=== PATIENT | female | born 1945 | race Caucasian/White ===

== ENCOUNTER → 2020-05-07 | Outpatient (CLI) | payer MEDICARE, OTHER ==
--- NOTE | 2020-05-12 16:36 | RAD ---
EXAM: Bilateral digital screening mammogram with tomosynthesis. HISTORY: 74-year-old female presents for screening mammography. TECHNIQUE: Full-field digital craniocaudal and mediolateral oblique 2D and 3D tomosynthesis images of both breasts are obtained for evaluation. Computer aided detection was applied. COMPARISON: 09/26/2016 BREAST PARENCHYMAL DENSITY: Level B - Scattered fibroglandular densities. FINDINGS: There is no new suspicious mass, microcalcification or region of architectural distortion. IMPRESSION: BI-RADS Category 2: Benign finding(s). RECOMMENDATION: Annual mammography is recommended. If your mammogram demonstrates that you have dense breast tissue, which could hide abnormalities, and if you have other risk factors for breast cancer that have been identified, you might benefit from s upplemental screening tests that may be suggested by your ordering physician. Dense breast tissue, i n and of itself, is a relatively common condition. This information is not provided to cause undue c oncern, but rather to raise your awareness and to promote discussion with your physician regarding th e presence of other risk factors, in addition to dense breast tissue. A report of your mammography re sults will be sent to you and your physician. You should contact your physician if you have any ques tions or concerns regarding this report. Mammography is a sensitive method for finding small breast cancers, but it does not detect them all a nd is not a substitute for careful clinical examination. A negative mammogram does not negate a clin ically suspicious finding and should not result in delay in biopsying a clinically suspicious abnorma lity. PQRS compliance statement - Patient information was entered into a reminder system with a target due date for the next mammogram. "Our facility is accredited by the [employer] Mammography [employer]." Electronically signed by: Sophy Franklin MD (05/12/2020 4:33 PM) [id number]
== END ==
LOC: MAMMO 10:53
PROVIDERS: ATTEND Family Medicine
DX: Z12.31 Encounter for screening mammogram for malignant neoplasm of breast (principal)
CPT/HCPCS: 77063; 77067

== ENCOUNTER 2020-09-22 07:48 | Emergency (ER) | payer MEDICARE, OTHER ==
[~2020-09-22] VITALS: Ht 162.6 cm; Wt 75.1 kg
[2020-09-22] MEDS ORDERED: IV NORMAL SALINE 1,000ML 1,000 ML IV SCH (08:15)
--- NOTE | 2020-09-22 08:26 | PHYS DOC ---
Past History Additional Past Medical Histor: seasonal allergies Past Surgical History: Cholecystectomy, Hysterectomy, Oophorectomy, Tonsillectomy, Other Additional Past Surgical Histo: colon surgery Alcohol Use: None General Adult EDM: Chief Complaint: FEVER HPI: HPI: 75-year-old female past medical history of COPD (no h/o hospitalizations for it), hypertension, hyperlipidemia, presents the ED with complaints of "weakness, I can't care for myself at home," stating she was recently exposed to covid by her son who stayed at her home. Was started on azithromycin and steroids this past week by [facility]. Has not been vaccinated for covid. Associated fever and shortness of breath. Review of Systems: Review of Systems: Constitutional: Denies lack of taste or smell Eyes: Denies change in visual acuity HENT: Denies nasal congestion or sore throat Respiratory: Denies cough or hemoptysis Cardiovascular: Denies chest pain or edema GI: Denies abdominal pain, nausea, vomiting, bloody stools or diarrhea : Denies dysuria or hematuria Musculoskeletal: Denies back pain or joint pain Integument: Denies rash or diaphoresis Neurologic: Denies headache, focal weakness or sensory changes Endocrine: Denies polyuria or polydipsia Lymphatic: Denies swollen glands Psychiatric: Denies depression or anxiety Allergies: Allergies: Allergies Coded Allergies Type Severity Reaction Last Updated Verified Penicillins Allergy Unknown 09/22/20 Yes levofloxacin Allergy Unknown Rash 09/22/20 Yes Physical Exam: PE: Constitutional: Well developed, well nourished, no acute distress, non-toxic appearance, afebrile HENT: Normocephalic, atraumatic, dry mucous membranes Eyes: EOMI, conjunctiva normal, no discharge. Neck: Normal range of motion, supple, Cardiovascular: S1/2 present, borderline tachycardia Lungs & Thorax: Speaking in full sentences, bilateral equal chest rise, no tachypnea or increased work of breathing, pursed lips - similar to copders, Abdomen: soft, no tenderness, Skin: Warm, dry, no erythema, no rash. [] Extremities: No tenderness, no cyanosis, Neurologic: Alert and oriented X 3, normal motor function, normal sensory function, no focal deficits noted. [] Psychologic: Affect normal, judgement normal, mood normal. [] Current Patient Data: Vital Signs: Vital Signs Date Time Temp Pulse Resp B/P (MAP) Pulse Ox O2 Delivery O2 Flow Rate FiO2 09/22/20 07:56 100.0 101 18 143/82 93 Room Air EKG: EKG: Sinus tachycardia 102 bpm, no axis deviation, QTC 461, no T wave inversion, no ST elevation or ST depression [] Radiology/Procedures: Radiology/Procedures: IMAGING REPORT Signed PATIENT: ANDERS DOBBINS ACCOUNT: [id number] : 1945 LOCATION: ER AGE: 75 SEX: F EXAM STATUS: REG ER ORD. PHYSICIAN: LOVELY HERR DO REASON: soa, r/o pe, reduced dose gfr 39 contrast administered per [facility] PROCEDURE: CT ANGIOGRAPHY CHEST PQRS Compliance Statement: One or more of the following individualized dose reduction techniques were utilized for this examination: 1. Automated exposure control 2. Adjustment of the mA and/or kV according to patient size 3. Use of iterative reconstruction technique CT CHEST WITH CONTRAST, PULMONARY ANGIOGRAM History: Reason: soa, Comparison: None. Technique: Helical CT of the chest was performed after the administration of 60 cc of Omnipaque 300 intravenous contrast according to PE protocol. Axial and coronal reconstructions were obtained. 3-D MIP images were constructed to better evaluate the pulmonary arteries. Findings: Pulmonary arteries are adequately opacified. There is no evidence of pulmonary embolism. Atherosclerotic thoracic aorta. No dissection is seen. The great vessels are normal caliber. Coronary artery disease. The cardiac size is normal, no pericardial effusion. There is a bvbvv-xg-fwuhmiah sized hiatal hernia. There are subcentimeter bilateral hilar lymph nodes. There is no adenopathy in the chest. There is no pleural abnormality. There is mild respiratory motion artifact. There is mild upper lung emphysema. There is a groundglass opacity in the right upper lobe measuring 1.2 cm. There is a groundglass and reticular opacity in the posterior right lower lobe measuring 2 cm. Lateral and superior there is another groundglass opacity measuring 1.6 cm. There is a groundglass and reticular opacity in the left upper lobe measuring 2.5 cm. The central airways are patent. There is moderate fatty infiltration of the visualized liver. Cholecystectomy. Thoracic spine alignment is maintained. IMPRESSION: 1. There is no pulmonary embolus. 2. There are a few groundglass and reticular opacities bilaterally that may be infectious or inflammatory or atelectasis or scarring. 3. Mild pulmonary emphysema. 4. Hiatal hernia. 5. Fatty infiltration of the liver. Electronically signed by: Nathaniel Aleman MD (09/22/2020 10:21 AM) [id number] DICTATED AND SIGNED BY: NATHANIEL ALEMAN MD DATE: 09/22/20 1011 Heart Score: C/O Chest Pain: No Risk Factors: Risk Factors: DM, Current or recent (<one month) smoker, HTN, HLP, family history of CAD, obesity. Risk Scores: Score 0 - 3: 2.5% MACE over next 6 weeks - Discharge Home Score 4 - 6: 20.3% MACE over next 6 weeks - Admit for Clinical Observation Score 7 - 10: 72.7% MACE over next 6 weeks - Early Invasive Strategies Course & Med Decision Making: Course & Med Decision Making Pertinent Labs and Imaging studies reviewed. (See chart for details) COVID-19 CRITERIA: The patient was evaluated during the global COVID-19 pandemic, and that diagnosis was suspected/considered upon their initial presentation. Their evaluation, treatment and testing was consistent with current guidelines for patients who present with complaints or symptoms that may be related to COVID-19. Concern for weakness and shortness of breath in the setting of known Covid exposure. CTA of the chest shows no pulmonary embolus, GGO c/w Covid infection. Patient with mild elevation of creatinine and liver functions.Patient with no active COPD exacerbation, not requiring any supplemental oxygen. Will recommend supportive measures. Patient already on antibiotics and steroids. Will prescribe albuterol rescue inhaler and Flovent for the next 30 days to prevent COPD exacerbation. Will discharge home with strict ED return precautions were given for difficulties breathing, hypoxia, strokelike symptoms, chest pain or syncope. Encouraged urgent outpatient follow-up with PMD and pulmonology for COPD management. Life-threatening processes were considered but are low suspicion at this time, given history, physical exam and ED workup. Pt was educated on all prescription medications and adverse effects. All patient's questions were answered and pt was stable at time of discharge. Life/limb-threatening differential includes but is not limited to, ACS, dysrhythmia, pneumothorax or hemothorax, pulmonary embolus, pneumonia, bronchoconstriction, pulmonary edema, angioedema, epiglottitis, tracheitis, Pito's angina, RPA/RADIOGRAPHER CARDIAC CATHETERIZATION, anaphylaxis, angioedema, cardiac tamponade or murmurs, pericarditis, myocarditis, poisoning or toxicity, sepsis or autoimmune/neurologic disease. I have spoken with the patient and/or caregivers. I explained the patient's condition, diagnoses and treatment plan based on the information available to me at this time. I have answered the patient and/or caregiver's questions and addressed any concerns. The patient and/or caregivers have a good understanding of patient's diagnosis, condition and treatment plan as can be expected at this point. Vital signs have been stable. Patient's condition is stable and appropriate for discharge from the emergency department. Patient will pursue further outpatient evaluation with primary care physician or other designated or consulting physician as outlined in the discharge instructions. The patient and/or caregivers are agreeable to this plan of care and follow-up instructions have been explained in detail. The patient and/or caregivers have received these instructions in written form and have expressed an understanding of the discharge instructions. The patient and/or caregivers are aware that any significant change of condition or worsening of symptoms should prompt immediate return to this or the closest emergency department or call to 911. Prashant Disclaimer: DragInfolinks Disclaimer: This electronic medical record was generated, in whole or in part, using a voice recognition dictation system. Departure Departure: Impression: Primary Impression: COVID-19 Additional Impression: COPD (chronic obstructive pulmonary disease) Disposition: HOME / SELF CARE / HOMELESS Condition: STABLE Referrals: MORIS MURPHY MD (PCP) Follow-up in the next few days for reevaluation Patient Instructions: Chronic Obstructive Pulmonary Disease Additional Instructions: Return to ED immediately if your oxygen level drops below 90% (purchase a pulse oximetry at a medical supply store), difficulties breathing including rapid breathing or increased work of breathing (skin sucking under ribs), chest pain or stroke-like symptoms (facial droop, speech changes, arm/leg weakness). FOLLOW UP WITH PULMONOLOGY: FOR DEFINITIVE MANAGEMENT of copd [facility] [address] [place] [address] You have been tested for or diagnosed with COVID-19. It is an infection caused by a new type of coronavirus. COVID-19 will cause cold-like or mild flu symptoms in most. It can cause more severe symptoms like problems breathing in some. There is no treatment for COVID-19. The body will clear the infection over time. Self-care will help to ease discomfort. Steps to Take: Self-Care Rest as needed. Healthy habits may help you feel better. Steps include: Choose healthy foods including fruits and vegetables. Drink water throughout the day. Get plenty of sleep each night. If you smoke, try to quit. It may ease breathing. Avoid alcohol. Keep Others Healthy The virus can spread to others. Droplets are released every time you sneeze or cough. The droplets can get into the mouth, nose, or eyes of people near you and lead to infection. To lower the chances of spreading COVID-19 to others: Stay at home until your doctor has said it is safe to leave. If you tested positive this will mean staying isolated until both of the following are true: At least 7 days have passed since the start of illness. You are free of fever for at least 72 hours without the use of medicine. During this time: - Avoid public areas, events, or transportation. Do not return to work or school until your doctor has said it is safe to do so. - Call ahead if you need to go to a medical center. Let them know you may have COVID-19. It will help them guide you where to go. They may also ask you to wear a facemask when you come to the office. - If you call for emergency medical services, let them know you may have COVID- 19. While at home: - Try to avoid close contact with others. Stay about 6 feet away. - If possible, spend most of your time in a separate room from others. - Use a face mask if you will be in close contact with others such as sharing a room or vehicle. - Have someone wipe down common surfaces in the home. Use household reed or wind instrument tuner every day on areas like doorknobs, counters, or sinks. - Cough or sneeze into a tissue. Throw the tissue away right after use. If a tissue is not available, cough or sneeze into your elbow. - Wash your hands often. Wash them after sneezing or coughing. Use soap and water and wash for at least 20 seconds. Alcohol based hand machine heddle cleaner can be used if soap and water is not available. - Do not prepare food for others. Avoid sharing personal items like forks, spoons, or toothbrushes. - Avoid close contact with pets while you are sick. There is no evidence of the virus passing to pets. This is a safety step until more is known about this virus. Isolation can be frustrating. Social interaction can help. Keep in touch with friends and family through phone and tech options. You can still interact with others in your home, just keep a safe distance of about 6 feet. Follow-up: Your doctors office will check in with you to see if there are any changes in your health. You may be asked to keep track of symptoms to share with them. They will also let you know when you are clear to be in public again. Problems to Look Out For: Contact your doctor if your recovery is not going as you expect. Get emergency care if you have problems such as: - Trouble breathing - Nonstop chest pain or pressure - Changes in awareness, confusion, or problems waking - Lips or face have bluish color - Worsening of symptoms If you think you have an emergency, call for emergency medical services right away. As taken from [facility] Fluticasone Propionate (FLOVENT 44MCG HFA) 10.6 Gm Aer.w.adap 2 PUFF IH BID for copd maintenance for 30 Days, #1 INHALER 0 Refills Prov: LOVELY HERR DO 09/22/20 Albuterol Sulfate (VENTOLIN HFA INHALER) 18 Gm Hfa.aer.ad 1 PUFF IH PRN Q4HRS PRN for FOR ASTHMA, #1 EACH 0 Refills Prov: LOVELY HERR DO 09/22/20 LOVELY HERR DO Sep 22, 2020 08:25
[2020-09-22 08:45] LABS: BASO % 0 % (0-3); EOS % 0 % (0-3); HEMATOCRIT 38.9 % (36.0-47.0); HEMOGLOBIN 13.4 g/dL (12.0-15.5); LYMPH # 0.3 x10^3/uL (1.0-4.8); LYMPH % 6 % (24-48); MEAN CORPUSCULAR HEMOGLOBIN 31 pg (25-35); MEAN CORPUSCULAR HGB CONC 34 g/dL (31-37); MEAN CORPUSCULAR VOLUME 91 fL (79-100); MONO # 0.7 x10^3/uL (0.0-1.1); MONO % 13 % (0-9); NEUT # 4.6 x10^3uL (1.8-7.7); NEUT % 81 % (31-73); PLATELET COUNT 148 x10^3/uL (140-400); RED BLOOD COUNT 4.29 x10^6/uL (3.50-5.40); RED CELL DISTRIBUTION WIDTH 12.7 % (11.5-14.5); WHITE BLOOD COUNT 5.7 x10^3/uL (4.0-11.0)
[2020-09-22 08:54] LABS: CREATININE 1.3 mg/dL (0.6-1.0); GFR 39.7; POTASSIUM 4.4 mmol/L (3.5-5.1)
[2020-09-22 09:08] LABS: ALBUMIN 3.9 g/dL (3.4-5.0); MAGNESIUM 1.4 mg/dL (1.8-2.4); TOTAL BILIRUBIN 0.5 mg/dL (0.2-1.0); TOTAL PROTEIN 7.8 g/dL (6.4-8.2)
[2020-09-22] MEDS ORDERED: IOHEXOL 350 MG/ML 100 ML VIAL. IV ONE (09:30)
[2020-09-22] MEDS ORDERED: DEXAMETHASONE SOD PHOS 10 MG/ML VIAL. IVP ONE (09:45)
[2020-09-22 10:20] VITALS: BP 129/55
--- NOTE | 2020-09-22 10:24 | RAD ---
PQRS Compliance Statement: One or more of the following individualized dose reduction techniques were utilized for this examinat ion: 1. Automated exposure control 2. Adjustment of the mA and/or kV according to patient size 3. Use of iterative reconstruction technique CT CHEST WITH CONTRAST, PULMONARY ANGIOGRAM History: Reason: soa, Comparison: None. Technique: Helical CT of the chest was performed after the administration of 60 cc of Omnipaque 300 intravenous contrast according to PE protocol. Axial and coronal reconstructions were obtained. 3-D MIP images were constructed to better evaluate the pulmonary arteries. Findings: Pulmonary arteries are adequately opacified. There is no evidence of pulmonary embolism. Atherosclerotic thoracic aorta. No dissection is seen. The great vessels are normal caliber. Coronary artery disease. The cardiac size is normal, no pericardial effusion. There is a hbdwa-uj-qpvxvxzk si zed hiatal hernia. There are subcentimeter bilateral hilar lymph nodes. There is no adenopathy in the chest. There is no pleural abnormality. There is mild respiratory motion artifact. There is mild upper lung emphysema. There is a groundglass opacity in the right upper lobe measuring 1.2 cm. There is a ground glass and reticular opacity in the posterior right lower lobe measuring 2 cm. Lateral and superior th ere is another groundglass opacity measuring 1.6 cm. There is a groundglass and reticular opacity in the left upper lobe measuring 2.5 cm. The central airways are patent. There is moderate fatty infiltration of the visualized liver. Cholecystectomy. Thoracic spine alignment is maintained. IMPRESSION: 1. There is no pulmonary embolus. 2. There are a few groundglass and reticular opacities bilaterally that may be infectious or inflamm atory or atelectasis or scarring. 3. Mild pulmonary emphysema. 4. Hiatal hernia. 5. Fatty infiltration of the liver. Electronically signed by: Nathaniel Aleman MD (09/22/2020 10:21 AM) [id number]
[2020-09-22] MEDS ORDERED: FLUT10.6 IH (10:32)
[2020-09-22] MEDS ORDERED: ALBU2.5V8 IH (10:32)
--- NOTE | 2020-09-23 07:03 | EKG ---
[address] [address] Test Date: 2020-09-22 Test Time: 08:22:50 Pat Name: ANDERS DOBBINS Department: Room: Gender: F Tool Technician: BIGG : 1945 Requested By: LOVELY HERR Order Number: [id number] Reading MD: Measurements Intervals [place] Rate: 102 P: 181 OK: 120 QRS: 68 QRSD: 72 T: 60 QT: 350 QTc: 461 Interpretive Statements SINUS TACHYCARDIA LEFT ATRIAL ABNORMALITY ABNORMAL ECG RI6.02 No previous ECG available for comparison
== END 2020-09-22 10:55 | disposition home or self-care (01) ==
LOC: ER 07:48
DX: U07.1 COVID-19 (principal); J44.9 Chronic obstructive pulmonary disease, unspecified; I10 Essential (primary) hypertension; E78.5 Hyperlipidemia, unspecified; Z88.0 Allergy status to penicillin; Z88.1 Allergy status to other antibiotic agents
CPT/HCPCS: 36415; 71275; 80053; 82550; 83605; 83735; 83880; 84484; 85025; 87040; 93005; 96361; 96374; 99285; J1100; J7030; Q9967

== ENCOUNTER 2020-09-24 13:20 | Emergency (ER) | payer MEDICARE, OTHER ==
[~2020-09-24] VITALS: Ht 162.6 cm; Wt 75.1 kg
[~2020-09-24 13:20] MED LIST: ALBU2.5V8 IH; FLUT10.6 IH
--- NOTE | 2020-09-24 13:43 | PHYS DOC ---
Past History Additional Past Medical Histor: seasonal allergies Past Surgical History: Cholecystectomy, Hysterectomy, Oophorectomy, Tonsillectomy, Other Additional Past Surgical Histo: colon surgery Alcohol Use: None General Adult EDM: Chief Complaint: WEAKNESS/GENERALIZED HPI: HPI: Patient is a 75-year-old female who was seen in the ER today for increased weakness and shortness of breath. Patient is Covid positive. She was seen in the ER on September 22 for similar complaints and discharged home with albuterol and Flovent inhalers. At that time patient's oxygen saturation levels were in the high 90s. At this time patient's O2 sat is 93 to 94% on room air. Patient not requiring any oxygen at this time. Patient was also previously seen at an urgent care and finished her Z-Miko and steroids. Patient does have a history of COPD, hypertension, hyperlipidemia. Patient feels like she cannot take care of herself at home because she is just too weak to make herself any food. Patient is also complaining of generalized body aches in which she rates 8 out of 10. Patient denies nausea, vomiting, diarrhea, fevers, sore throat, chest pain, abdominal pain. Review of Systems: Review of Systems: Constitutional: Denies fever or chills Eyes: Denies change in visual acuity HENT: Denies nasal congestion or sore throat Respiratory: Denies cough or shortness of breath Cardiovascular: Denies chest pain or edema GI: Denies abdominal pain, nausea, vomiting, bloody stools or diarrhea : Denies dysuria Musculoskeletal: Denies back pain or joint pain Integument: Denies rash Neurologic: Denies headache, focal weakness or sensory changes Endocrine: Denies polyuria or polydipsia Lymphatic: Denies swollen glands Psychiatric: Denies depression or anxiety Allergies: Allergies: Allergies Coded Allergies Type Severity Reaction Last Updated Verified Penicillins Allergy Unknown 09/24/20 Yes levofloxacin Allergy Unknown Rash 09/24/20 Yes Physical Exam: PE: Constitutional: Well developed, well nourished, no acute distress, non-toxic appearance. [] HENT: Normocephalic, atraumatic Eyes: PERRL,conjunctiva normal, no discharge. [] Neck: Normal range of motion, no stridor Cardiovascular:Heart rate regular rhythm, no murmur [] Lungs & Thorax: Bilateral breath sounds clear to auscultation but diminished, nonlabored, no increased work of breathing [] Abdomen: Bowel sounds normal, soft, no tenderness, no masses, no pulsatile ma sses. [] Skin: Warm, dry, no erythema, no rash. [] Back: Normal range of motion Extremities: No tenderness, no cyanosis, no clubbing, ROM intact, no edema. [] Neurologic: Alert and oriented X 3, normal motor function, normal sensory function, no focal deficits noted. [] Psychologic: Affect normal, judgement normal, mood normal. [] Patient road tested and O2 saturations stayed between 92 to 94% with exertion. Current Patient Data: Labs: Laboratory Tests Test 09/24/20 13:50 White Blood Count 4.3 x10^3/uL Red Blood Count 4.28 x10^6/uL Hemoglobin 13.4 g/dL Hematocrit 39.1 % Mean Corpuscular Volume 91 fL Mean Corpuscular Hemoglobin 31 pg Mean Corpuscular Hemoglobin Concent 34 g/dL Red Cell Distribution Width 13.6 % Platelet Count 149 x10^3/uL Neutrophils (%) (Auto) 63 % Lymphocytes (%) (Auto) 18 % Monocytes (%) (Auto) 18 % Eosinophils (%) (Auto) 0 % Basophils (%) (Auto) 1 % Neutrophils # (Auto) 2.7 x10^3uL Lymphocytes # (Auto) 0.8 x10^3/uL Monocytes # (Auto) 0.8 x10^3/uL Eosinophils # (Auto) 0.0 x10^3/uL Basophils # (Auto) 0.0 x10^3/uL Sodium Level 131 mmol/L Potassium Level 4.0 mmol/L Chloride Level 95 mmol/L Carbon Dioxide Level 24 mmol/L Anion Gap 12 Blood Urea Nitrogen 29 mg/dL Creatinine 1.6 mg/dL Estimated GFR (Cockcroft-Gault) 31.3 BUN/Creatinine Ratio 18 Glucose Level 129 mg/dL Lactic Acid Level 1.9 mmol/L Calcium Level 8.8 mg/dL Total Bilirubin 0.6 mg/dL Aspartate Amino Transf (AST/SGOT) 162 U/L Alanine Aminotransferase (ALT/SGPT) 156 U/L Alkaline Phosphatase 74 U/L Troponin I Quantitative 0.023 ng/mL Total Protein 7.5 g/dL Albumin 3.4 g/dL Albumin/Globulin Ratio 0.8 Vital Signs: Vital Signs Date Time Temp Pulse Resp B/P (MAP) Pulse Ox O2 Delivery O2 Flow Rate FiO2 09/24/20 13:34 97.9 91 18 136/69 94 Room Air EKG: EKG: EKG performed at 1348 by ER staff. Read is sinus rhythm, no STEMI by Dr. Sahu at 1352. Radiology/Procedures: Radiology/Procedures: PROCEDURE: PORTABLE CHEST 1V XR CHEST 1V History: Reason: covid soa / Spl. Instructions: / History: Comparison: CT September 22, 2020 Findings: Mild ill-defined mid and bibasilar opacities. No pleural effusion. No pneumothorax. Normal heart size. Impression: 1. Mild ill-defined opacities, may represent atelectasis or infiltrates including viral pneumonia. Electronically signed by: Edgar Roberson DO (09/24/2020 3:02 PM) [id number] DICTATED AND SIGNED BY: EDGAR ROBERSON DO DATE: 09/24/20 1501 CC: MORIS MURPHY MD; EMERGENCY,DEPARTMENT; KEVEN GODDARD WALLPAP[employer] HANGER ~MTH0 0 Heart Score: C/O Chest Pain: No Risk Factors: Risk Factors: DM, Current or recent (<one month) smoker, HTN, HLP, family history of CAD, obesity. Risk Scores: Score 0 - 3: 2.5% MACE over next 6 weeks - Discharge Home Score 4 - 6: 20.3% MACE over next 6 weeks - Admit for Clinical Observation Score 7 - 10: 72.7% MACE over next 6 weeks - Early Invasive Strategies Course & Med Decision Making: Course & Med Decision Making Pertinent Labs and Imaging studies reviewed. (See chart for details) Patient is a 75-year-old female being seen in the ER today for increased weakness and shortness of breath after being diagnosed with COVID-19. Work-up in the ER included a chest x-ray, EKG, and blood work. Patient was just seen in the ER [address] had [address] scan of chest, lab work, EKG. work-up in the ER was consistent with the findings from her visit 2 days prior. I spoke with Dr. Lewis regarding admission. He reports that patient does not meet admission criteria right now because she does not require any oxygen and she is stable. He reported that Dr. Barrett will be back in town on Sunday and for her to follow-up with him on Sunday. She is advised to return with any new or worsening symptoms. Patient discharged home with prednisone. Patient reports that she cannot make her own meals at home, patient educated on the resources available to her. Was advised to ask friends/family to help provide her meals and drop them off of the doorstep. I discussed with patient all findings and diagnostic testing as well as the need to follow-up with PCP for further evaluation and treatment or return to the ER if any new or worsening symptoms. Strict return precautions were also discussed at length. Patient voiced understanding and agreement with the plan. Patient is hemodynamically stable at the time of disposition. Dragon Disclaimer: Dragon Disclaimer: This electronic medical record was generated, in whole or in part, using a voice recognition dictation system. Departure Departure: Impression: Primary Impression: COVID-19 Disposition: HOME / SELF CARE / HOMELESS Condition: STABLE Referrals: MORIS MURPHY MD (PCP) Patient Instructions: Pneumonia, Adult Additional Instructions: You were seen in the ER today for increased shortness of breath and weakness related to your COVID-19 viral illness. Your vital signs were stable and your work-up in the ER is similar to findings when you were here 2 days ago. At this time you are not requiring any oxygen and do not meet the requirements to be admitted. If you are having weakness and are not able to prepare your meals, please ask your family and friends to leave prepared meals at your door. You were treated in the ER with a steroid. You are being discharged home with a steroid prescription. Please make sure that you fill the medication and take it as directed. As we discussed, you can have a family member or friend metal pickling equipment operator the prescription for you and drop it off at your door. Increase your fluids, rest, take Tylenol/ibuprofen for any pain. Continue taking your medications as prescribed for your COPD. If your symptoms worsen and you develop increased shortness of breath, increased weakness, nausea, vomiting, diarrhea, high fevers that are not treated with medications, chest pain return to the ER immediately. I spoke with the physician covering for Dr. Chandra. He reports that Dr. Barrett will be back in the office on Sunday and you need to follow-up with him on Sunday. EMERGENCY DEPARTMENT GENERAL DISCHARGE INSTRUCTIONS Thank you for coming to [facility] (ED) today and trusting us with you care. We trust that you had a positivie experience in our Emergency Department. If you wish to speak to the department management, you may call the director at [phone]. YOUR FOLLOW UP INSTRUCTIONS ARE FOLLOWS: 1. Do you have a private Doctor? If you do not have a private doctor, please ask for a resource list of physicians or clinics that may be able to assist you with follow up care. 2. The Emergency Physician has interpreted your x-rays. The X-Ray specialist will also review them. If there is a change in the findings, you will be notified in 48 hours when at all possible. 3. A lab test or culture has been done, your results will be reviewed and you will be notified if you need a change in treatment. ADDITIONAL INSTRUCTIONS AND INFORMATION: 1. Your care today has been supervised by a physician who is specially trained in emergency care. Many problems require more than one evaluation for a complete diagnosis and treatment. We recommend that you schedule your follow up appointment as recommended to ensure complete treatment of you illness or injury. If you are unable to obtain follow up care and continue to have a problem, or if your condition worsens, we recommend that you return to the ED. 2. We are not able to safely determine your condition over the phone nor are we able to give sound medical advice over the phone. For these safety reasons, if you call for medical advice we will ask you to come to the ED for further evaluation. 3. If you have any questions regarding these discharge instructions please call the ED at [phone]. SAFETY INFORMATION: In the interest of safety, wellness, and injury prevention; we encourage you to wear your sealbelt, if you smoke; quite smoking, and we encourage family to use a protective helmet for bicycling and other sporting events that present an increased risk for head injury. IF YOUR SYMPTOMS WORSEN OR NEW SYMPTOMS DEVELOP, OR YOU HAVE CONCERNS ABOUT YOUR CONDITION; OR IF YOUR CONDITION WORSENS WHILE YOU ARE WAITING FOR YOUR FOLLOW UP APPOINTMENT; EITHER CONTACT YOUR PRIMARY CARE DOCTOR, THE PHYSICIAN WHOSE NAME AND NUMBER YOU WERE GIVEN, OR RETURN TO THE ED IMMEDIATELY. Scripts Prednisone (PREDNISONE) 20 Mg Tablet 3 TAB PO DAILY for copd for 7 Days, #21 TAB 0 Refills Prov: KEVEN GODDARD APRN 09/24/20 KEVEN GODDARD APRN Sep 24, 2020 13:43
[2020-09-24 14:17] LABS: BASO % 1 % (0-3); EOS % 0 % (0-3); HEMATOCRIT 39.1 % (36.0-47.0); HEMOGLOBIN 13.4 g/dL (12.0-15.5); LYMPH # 0.8 x10^3/uL (1.0-4.8); LYMPH % 18 % (24-48); MEAN CORPUSCULAR HEMOGLOBIN 31 pg (25-35); MEAN CORPUSCULAR HGB CONC 34 g/dL (31-37); MEAN CORPUSCULAR VOLUME 91 fL (79-100); MONO # 0.8 x10^3/uL (0.0-1.1); MONO % 18 % (0-9); NEUT # 2.7 x10^3uL (1.8-7.7); NEUT % 63 % (31-73); PLATELET COUNT 149 x10^3/uL (140-400); RED BLOOD COUNT 4.28 x10^6/uL (3.50-5.40); RED CELL DISTRIBUTION WIDTH 13.6 % (11.5-14.5); WHITE BLOOD COUNT 4.3 x10^3/uL (4.0-11.0)
[2020-09-24 14:22] LABS: CALCIUM 8.8 mg/dL (8.5-10.1); CREATININE 1.6 mg/dL (0.6-1.0); GFR 31.3
[2020-09-24 14:26] LABS: ALBUMIN 3.4 g/dL (3.4-5.0); ALBUMIN/GLOBULIN RATIO 0.8 (1.0-1.7); TOTAL BILIRUBIN 0.6 mg/dL (0.2-1.0); TOTAL PROTEIN 7.5 g/dL (6.4-8.2)
--- NOTE | 2020-09-24 15:05 | RAD ---
XR CHEST 1V History: Reason: covid soa / Spl. Instructions: / History: Comparison: CT September 22, 2020 Findings: Mild ill-defined mid and bibasilar opacities. No pleural effusion. No pneumothorax. Normal heart size . Impression: 1. Mild ill-defined opacities, may represent atelectasis or infiltrates including viral pneumonia. Electronically signed by: Edgar Gloria DO (09/24/2020 3:02 PM) [id number]
[2020-09-24] MEDS ORDERED: methylPREDNISolone SOD SUCC PF 125 MG/2 ML VIAL. IV ONE (16:15)
[2020-09-24] MEDS ORDERED: PRED20TA PO (16:15)
[2020-09-24 16:30] VITALS: BP 126/63
== END 2020-09-24 17:25 | disposition home or self-care (01) ==
LOC: ER 13:20
DX: U07.1 COVID-19 (principal); Z90.49 Acquired absence of other specified parts of digestive tract; Z90.710 Acquired absence of both cervix and uterus; Z88.0 Allergy status to penicillin; Z88.1 Allergy status to other antibiotic agents
CPT/HCPCS: 36415; 71045; 80053; 83605; 84484; 85025; 93005; 96374; 99285; J2930

== ENCOUNTER → 2021-06-08 | Outpatient (CLI) | payer MEDICARE, OTHER ==
[~2021-06-08] MED LIST changes: +PRED20TA PO
[2021-06-08 12:10] LABS: BASO # 0.1 x10^3/uL (0.0-0.2); BASO % 1 % (0-3); EOS # 0.1 x10^3/uL (0.0-0.7); EOS % 1 % (0-3); LYMPH # 1.2 x10^3/uL (1.0-4.8); LYMPH % 12 % (24-48); MEAN CORPUSCULAR HEMOGLOBIN 30 pg (25-35); MEAN CORPUSCULAR HGB CONC 34 g/dL (31-37); MEAN CORPUSCULAR VOLUME 88 fL (79-100); MONO # 0.7 x10^3/uL (0.0-1.1); MONO % 7 % (0-9); NEUT # 8.1 x10^3uL (1.8-7.7); NEUT % 79 % (31-73); PLATELET COUNT 252 x10^3/uL (140-400); RED BLOOD COUNT 4.31 x10^6/uL (3.50-5.40); RED CELL DISTRIBUTION WIDTH 12.8 % (11.5-14.5); WHITE BLOOD COUNT 10.3 x10^3/uL (4.0-11.0)
[2021-06-08 12:26] LABS: CALCIUM 9.9 mg/dL (8.5-10.1); CREATININE 1.7 mg/dL (0.6-1.0); GFR 29.1; POTASSIUM 4.3 mmol/L (3.5-5.1)
[2021-06-08 12:28] LABS: BACTERIA,URINE FEW /HPF (0-FEW); CLARITY,URINE CLEAR; COLOR,URINE YELLOW; GLUCOSE,URINE 500 mg/dL (NEG); NITRITE,URINE NEG (NEG); SQUAMOUS EPITHELIAL CELL,UR FEW /LPF; UROBILINOGEN,URINE 0.2 mg/dL (0.2 mg/dL)
[2021-06-08 12:31] LABS: ALBUMIN 4.1 g/dL (3.4-5.0); ALBUMIN/GLOBULIN RATIO 1.1 (1.0-1.7); MAGNESIUM 1.6 mg/dL (1.8-2.4); TOTAL BILIRUBIN 0.9 mg/dL (0.2-1.0); TOTAL PROTEIN 7.7 g/dL (6.4-8.2)
== END ==
LOC: LAB 11:27
PROVIDERS: ATTEND Family Medicine
DX: I10 Essential (primary) hypertension (principal); E78.00 Pure hypercholesterolemia, unspecified; F34.1 Dysthymic disorder; N19 Unspecified kidney failure; E78.2 Mixed hyperlipidemia; E55.9 Vitamin D deficiency, unspecified; E53.8 Deficiency of other specified B group vitamins; R06.02 Shortness of breath
CPT/HCPCS: 36415; 80053; 81001; 83735; 85025